=== PATIENT | male | born 1955 | race Caucasian/White ===

== ENCOUNTER 2017-08-03 18:29 | Observation (INO) | payer BC ==
[~2017-08-03] VITALS: Ht 180.3 cm; Wt 83.0 kg
[~2017-08-03 18:29] MED LIST: ASPIRIN81 M1 PO; NAPROSYN500 MG PO; NORCO 5/3251 TABLET PO
[2017-08-03 19:26] LABS: HEMATOCRIT 39.8 % (38.0-50.0); HEMOGLOBIN 14.4 G/DL (12.5-16.6); MCH 32.6 PG (29.0-34.0); MCHC 36.2 G/DL (30.0-36.0); PLATELET COUNT 279 K/uL (156-360); RBC DIS.WIDTH-SD 39.7 % (39-53); RED BLOOD COUNT 4.42 M/uL (4.00-5.50); WHITE BLOOD COUNT 8.1 K/uL (4.1-10.2)
[2017-08-03 19:41] LABS: CHLORIDE 104 mEq/L (99-109)
[2017-08-03 19:42] LABS: POTASSIUM 4.5 mEq/L (3.7-5.4); SODIUM 136 mEq/L (136-147)
[2017-08-03 19:43] LABS: GLUCOSE 159 mg/dL (70-99)
[2017-08-03 19:47] LABS: CREATININE 0.9 mg/dL (0.6-1.3); GFR ESTIMATE (CALCULATED) > 59 mL/min/ (58.99-99999)
[2017-08-03 19:47] LABS: TROP-I INTERPRETATION NEGATIVE; TROPONIN-I < 0.01 ng/mL (0.0-0.30)
[2017-08-03 19:48] LABS: UREA NITROGEN (BUN) 15 mg/dL (9-23)
[2017-08-03 22:57] LABS: THYROTROPIN (TSH) 0.36 MIU/L (0.4-5.5)
[2017-08-03 23:44] LABS: D-DIMER ELISA ND ng/mLDDU (<230)
[2017-08-04 01:38] LABS: TROP-I INTERPRETATION NEGATIVE; TROPONIN-I < 0.01 ng/mL (0.0-0.30)
[2017-08-04] MEDS ORDERED: PROAIR HFA8.5 GM IH (01:40)
[2017-08-04] MEDS ORDERED: LIPITOR20 MG PO (01:40)
[2017-08-04] MEDS ORDERED: AUGMENTIN875 MG PO (01:40)
[2017-08-04] MEDS ORDERED: DIOVAN HCT 31 TABLE1 PO (01:41)
[2017-08-04] MEDS ORDERED: PROZAC40 MG PO (01:41)
[2017-08-04] MEDS ORDERED: NEXIUM 24HR20 M2 PO (01:41)
[2017-08-04] MEDS ORDERED: ALEVE220 MG PO (01:42)
[2017-08-04] MEDS ORDERED: CENTRUM SILVER1 EAC5 PO (01:42)
[2017-08-04] MEDS ORDERED: DELSYM30 MG/5 M1 PO (01:42)
[2017-08-04] MEDS ORDERED: LO-DOSE ASPIRIN81 M1 PO (01:42)
[2017-08-04] MEDS ORDERED: MEDROL4 MG PO ×5 (01:45→01:47)
[2017-08-04 05:23] VITALS: BP 129/77
[2017-08-04 07:25] VITALS: BP 149/77
[2017-08-04 08:19] LABS: HEMATOCRIT 37.7 % (38.0-50.0); HEMOGLOBIN 13.2 G/DL (12.5-16.6); MCH 31.7 PG (29.0-34.0); MCV 90.4 FL (86-99); PLATELET COUNT 220 K/uL (156-360); RBC DIS.WIDTH-CV 12.4 % (11.8-14.6); RBC DIS.WIDTH-SD 40.9 % (39-53); RED BLOOD COUNT 4.17 M/uL (4.00-5.50); WHITE BLOOD COUNT 8.8 K/uL (4.1-10.2)
[2017-08-04 08:42] LABS: ALBUMIN 3.8 G/DL (3.2-4.8); ALKALINE PHOSPHATASE 27 IU/L (3-129); ALT (GPT) 57 IU/L (3-49); AST (GOT) 21 IU/L (2-34); CHLORIDE 105 MEQ/L (99-109); CREATININE 0.7 MG/DL (0.6-1.3); GFR ESTIMATE (CALCULATED) > 59 mL/min/ (58.99-99999); GLUCOSE 134 mg/dL (70-99); POTASSIUM 4.1 MEQ/L (3.7-5.4); SODIUM 140 MEQ/L (136-147); TOTAL BILIRUBIN 0.3 MG/DL (0.0-1.0); TOTAL PROTEIN 6.1 G/DL (6.4-8.3); UREA NITROGEN (BUN) 15 mg/dL (9-23)
[2017-08-04 08:45] LABS: TROP-I INTERPRETATION NEGATIVE; TROPONIN-I < 0.01 ng/mL (0.0-0.30)
[2017-08-04 09:06] LABS: HEMOGLOBIN A1c (GLYCOHEMOGLOB) 5.9 % (Below 5.7)
[2017-08-04 12:04] VITALS: BP 112/65
[2017-08-04 14:38] LABS: TROP-I INTERPRETATION NEGATIVE; TROPONIN-I < 0.01 ng/mL (0.0-0.30)
[2017-08-04 16:03] VITALS: BP 130/74
[2017-08-04] MEDS ORDERED: NICOTINE PATCH1 EAC2 TD (16:58)
[2017-08-04 20:28] VITALS: BP 134/75
[2017-08-04 23:55] VITALS: BP 136/72
[2017-08-05 03:44] VITALS: BP 122/66
[2017-08-05 12:08] VITALS: BP 129/69
[2017-08-05 17:26] VITALS: BP 111/65
[2017-08-05 19:22] VITALS: BP 125/67
[2017-08-05 23:28] VITALS: BP 133/80
[2017-08-06 03:37] VITALS: BP 148/86
[2017-08-06 09:50] VITALS: BP 145/79
[2017-08-06 11:30] VITALS: BP 121/67
[2017-08-06 11:32] VITALS: BP 123/74
[2017-08-06 11:34] VITALS: BP 121/73
[2017-08-06] MEDS ORDERED: AMITRIPTYLINE H10 MG PO (14:56)
[2017-08-06 16:20] VITALS: BP 112/62
[2017-08-06] MEDS ORDERED: MECLIZINE HCL25 MG PO (16:43)
== END 2017-08-06 17:22 | disposition home or self-care (01) ==
LOC: RME 18:29 → EME 18:29 → EDOF 08-04 02:50 → ENRESERV 08-04 03:05 → 5WEST 08-04 05:03
PROVIDERS: Internal Medicine; Physician Assistant Medical
DX: R07.9 Chest pain, unspecified (principal); R06.09 Other forms of dyspnea; R42 Dizziness and giddiness; I10 Essential (primary) hypertension; K21.9 Gastro-esophageal reflux disease without esophagitis; J43.9 Emphysema, unspecified; F32.9 Major depressive disorder, single episode, unspecified; E78.5 Hyperlipidemia, unspecified; E78.00 Pure hypercholesterolemia, unspecified; G25.81 Restless legs syndrome; F17.200 Nicotine dependence, unspecified, uncomplicated; Z79.82 Long term (current) use of aspirin
CPT/HCPCS: 70551; 71046; 71275; 80048; 80053; 83036; 84443; 84484; 85027; 85379; 93005; 94640; 94640 76; 99202; 99281; 99285; G0378; J1644; J2930